=== PATIENT | female | born 1930 | race Caucasian/White ===

== ENCOUNTER → 2017-02-18 | Outpatient (CLI) | payer MEDICARE, BC ==
[~2017-02-18] MED LIST: AREDS PO; ASA CHILDREN'S81 MG PO; ASPIR 8181 MG OP; ASPIRIN EC81 MG PO; AUGMENTIN 500500 MG PO; COLACE-DPS100 MG PO; DAILY MULTIPLE1 EAC1 PO; HYDROCODONE 5MG/5 MG PO; HYDRODIURIL-DPS25 MG PO; IMDUR DPS30 MG PO; IMDUR DPS60 MG PO; KLOR-CON M2020 ME1 PO; LISINOPRIL20 MG PO; LOPRESSOR DPS50 MG PO; METOPROLOL TART25 MG PO; MIRALAX DPS17 GM PO; NITROSTAT0.4 MG SL; NORCO 5-325 TA1 EACH PO; NORVASC DPS10 MG PO; PANTOPRAZOLE SO40 MG PO; PLAVIX75 MG PO; PRESERVISION A1 EAC2 PO; PROTONIX40 MG PO; SYNTHROID DPS0.1 MG PO; SYNTHROID100 MCG PO; THERA1 EACH PO; TOPROL XL25 MG PO; VITAMIN D1000 UNI1 PO; VITAMIN D1000 UNIT PO; VITAMIN D31000 UNIT PO; XALATAN2.5 ML OU; ZYLOPRIM-DPS300 MG PO
== END | disposition home or self-care (01) ==
LOC: RAD.S 13:15
DX: N63 Unspecified lump in breast (principal)